=== PATIENT | female | born 1980 | race Caucasian/White ===

== ENCOUNTER → 2018-03-11 | Outpatient (CLI) | payer OTHER ==
[~2018-03-11] VITALS: Ht 167.6 cm; Wt 83.9 kg
[2018-03-11 10:25] VITALS: BP 129/80
[2018-03-11 10:45] VITALS: BP 124/64
--- NOTE | 2018-03-11 11:05 | Diagnostic Imaging Report ---
INDICATION: Right neck mass. FINDINGS: Sonographic guidance was provided for Dr. Cody for performance of fine needle aspiration of a right neck mass. Several images demonstrate a mixed solid and cystic mass located in the right neck. IMPRESSION: Sonographic guidance for right neck mass FNA performed by Dr. Cain Cody. Dictated by: Dictated on workstation # [id number]
== END ==
LOC: RAD 10:01
PROVIDERS: ATTEND Otolaryngology Otolaryngology/Facial Plastic Surgery
DX: R22.1 Localized swelling, mass and lump, neck (principal)
CPT/HCPCS: 76942